=== PATIENT | male | born 1980 | race Caucasian/White ===

== ENCOUNTER 2017-10-25 14:57 | Inpatient (IN) | payer OTHER ==
[2017-10-25 18:33] VITALS: BMI 20.2
--- NOTE | 2017-10-25 21:20 | HP ---
COWS - Scale Resting Pulse: 1= RI 81-100 Sweatin= Chills/Flushing Restless Observation: 1= Difficult to Sit Still Pupil Size: 1= Pupils >than Normal Bone or Joint Aches: 1= Mild Discomfort Runny Nose/ Eye Tearin= Nasal Congestion GI Upset > 30mins: 3= Vomiting/Diarrhea (Vomiting started today r/t withdrawal) Tremor Observation: 2= Slight Tremor Visible Yawning Observation: 0= None Anxiety or Irritability: 2=Irritable/Anxious Goose Flesh Skin: 0=Smooth Skin COWS Score: 13 Admission [facility] Chief Complaint: Here for heroin withdrawal, cocaine, and benzo withdrawal. Allergies/Adverse Reactions: Allergies Allergy/AdvReac Type Severity Reaction Status Date / Time No Known Allergies Allergy Verified 10/25/17 18:48 History of Present Illness: First detox for opiate use disorder. Started using heroin from age 17 to 18 and stopped. Re-started heroin 4 months ago States started using heroin because of inability to get usual prescription pain medications. CHIEF WARDEN indicates oxycodone and tramadol prescriptions for approx 1 year. Received pain management for low back pain. Cocaine use occ since age 14. Denies alcohol. Has been using Xanax 2-3 x/week since age 15. On prescription THC for pain management. Last used in THC in September 2017. Pain and musculo-skeletal issues r/t 40 foot fall 2 years ago. Exam Limitations: No Limitations - Ebola screening Have you traveled outside of the country in the last 21 days: Yes Have you had contact with anyone from an Ebola affected area: No Have you been sick,other than usual withdrawal symptoms: No Do you have a fever: No - Review of Systems Constitutional: Chills, Unintentional Wgt. Loss (r/t poor appetite and vomiting r/t heroin use.) EENT: reports: Dental Problems (Broken teeth and multiple caries. Denies dental pain.) Respiratory: reports: Other (Hx asthma - last exacerbation over 1 year ago. No current medications.) Cardiac: reports: No Symptoms Reported GI: reports: Diarrhea (x 3 days), Vomiting (x 3 days) : reports: Other (Difficulty starting urine flow since accident. Urinates about 2-3 times/day. Denies pain or blood w/ urination.) Musculoskeletal: reports: Back Pain (Protruding coccyx. S/p 40 foot fall. LBP is a "10", sharp and increases with touch or pressure, walking. Pain medication helps.), Joint Pain (Pain in (R) knee is a "10" and very 'hard'. Has a pin in upper leg and knee. Pain increases with cold weather, raining, and walking. Uses crutches and wear a knee brace. Resting and pain medication helps.), Muscle Weakness (Generalized.) Integumentary: reports: No Symptoms Reported Endocrine: reports: No Symptoms Reported Hematology: reports: No Symptoms Reported Psychiatric: reports: Depressed (Depression x 7 months. Denies suicide or violent ideation.) Patient History - Patient Medical History Hx Asthma: Yes (NO MEDIACTION PRESCRIBED) Hx Chronic Obstructive Pulmonary Disease (COPD): No Hx Cancer: No Hx Cardiac Disorders: No Hx Congestive Heart Failure: No Hx Hypertension: No Hx Pacemaker: No HX Cerebrovascular Accident: No Hx Seizures: No Hx Dementia: No Hx Diabetes: No Hx Gastrointestinal Disorders: No Hx Liver Disease: Yes (Hep C) Hx Genitourinary Disorders: No Hx Sexually Transmitted Disorders: No Hx Renal Disease (ESRD): No Hx Thyroid Disease: No Hx Human Immunodeficiency Virus (HIV): No Hx Hepatitis C: Yes (No medication treatment) Hx Depression: Yes Hx Suicide Attempt: Yes (19 YEARS AGO IN [place], ATTEMPTED TO HANG HIMSELF WITH A ROPE) Hx Schizophrenia: No - Patient Surgical History Past Surgical History: Yes Hx Neurologic Surgery: No Hx Cataract Extraction: No Hx Cardiac Surgery: No Hx Lung Surgery: No Hx Breast Surgery: No Hx Breast Biopsy: No Hx Abdominal Surgery: No Hx Appendectomy: No Hx Cholecystectomy: No Hx Genitourinary Surgery: No Hx Section: No Hx Orthopedic Surgery: Yes (2 YEARS AGO SURGERY ON BACK, LEFT LEG LEFT HAND AND LEFT SIDE OF FACE) Anesthesia Reaction: No - PPD History Previous Implant?: Yes Documented Results: Negative w/o proof PPD to be Administered?: Yes - Reproductive History Patient is a Female of Child Bearing Age (11 -55 yrs old): No - Smoking Cessation Smoking history: Current every day smoker Have you smoked in the past 12 months: Yes Aproximately how many cigarettes per day: 10 Hx Chewing Tobacco Use: No Initiated information on smoking cessation: Yes 'Breaking Loose' booklet given: 10/25/17 - Substance & Tx. History Hx Alcohol Use: No Hx Substance Use: Yes Substance Use Type: Cocaine, Heroin, Prescribed (Was on prescribed opiates until June 2017. On medical THC until September 2017) - Substances Abused Heroin Route: Injection Frequency: Daily Amount used: 7-10 bags daily ($70-100) Age of first use: 17 Date of Last Use: 10/24/17 Cocaine Route: Injection Frequency: 1-3 times last 30 days Amount used: 1-2 bundles when used Age of first use: 17 Date of Last Use: 10/15/17 Alprazolam (Xanax) Route: Oral Frequency: 3-6 times per week Amount used: 2-3 sticks Age of first use: 15 Date of Last Use: 10/24/17 Family Disease History - Family Disease History Family Disease History: Diabetes: Grandparent (Metastatic cancer - MGM), CA: Grandparent, Respiratory: Brother (Asthma) Admission Physical Exam [facility] - Vital Signs Vital Signs: Vital Signs - 24 hr 10/25/17 18:31 Temperature 97.5 F L Pulse Rate 85 Respiratory 20 Rate Blood Pressure 114/72 - Physical General Appearance: Yes: Appropriately Dressed, Mild Distress HEENTM: Yes: EOMI, Hearing grossly Normal, MARIBEL (Pupils 4 mm) Respiratory: Yes: Lungs Clear, Normal Breath Sounds Neck: Yes: No masses,lesions,Nodules Breast: Yes: Breast Exam Deferred Cardiology: Yes: Regular Rhythm, Regular Rate, S1, S2 Abdominal: Yes: Non Tender, Flat, Soft Genitourinary: Yes: Within Normal Limits Back: Yes: Decreased Range of Motion (Unable to fully flrx back.), Vertebral Tenderness (Tenderness and protruding structure in lumbar/coccyx area.) Musculoskeletal: Yes: Back pain (Protruding coccyx with increased warmth and tenderness.) Extremities: Yes: Within Normal Limits, Tremors, Other (Swelling and tenderness (L) knee area.) Neurological: Yes: Fully Oriented, Alert, Other (BHG (R) greater than (L).) Integumentary: Yes: Track Benites (Track benites (L) antecubital area. Poor skin turgor.), Other (Superficial lesion area approx 2 mm circular w/ whitish skin at center at coccyx area.) - Diagnostic (1) Cocaine dependence with withdrawal Current Visit: Yes Status: Acute (2) Opiate withdrawal Current Visit: Yes Status: Acute (3) Skin lesion of back Current Visit: Yes Status: Acute (4) Impaired mobility Current Visit: Yes Status: Acute (5) Nicotine dependence unspecified, with withdrawal Current Visit: Yes Status: Acute Cleared for Admission [facility] - Detox or Rehab [facility] Level of Care: Medically Managed Detox Regimen/Protocol: Methadone/Valium [facility] Breath Alcohol Content Breath Alcohol Content: 0 Urine Drug Screen - Results Drug Screen Negative: No Urine Drug Screen Results: THC-Marijuana, TIERA-Cocaine, OPI-Opiates, BZO- Benzodiazepines, MTD-Methadone
[2017-10-25] MEDS ORDERED: MELATONIN 5 MG TABLETS PO PRN (22:00)
[2017-10-25] MEDS ORDERED: MAG HYDROX/AL HYDROX/SIMETH 30 ML UNIT-DOSE CUP PO PRN (22:01)
[2017-10-25] MEDS ORDERED: NICOTINE POLACRILEX 2 MG GUM BUC PRN (22:01)
[2017-10-25] MEDS ORDERED: MAGNESIUM HYDROX 2400MG/30ML ORAL SUSPENSION 30 ML CUP PO PRN (22:01)
[2017-10-25] MEDS ORDERED: hydrOXYzine PAMOATE 50 MG CAPSULE (FP) PO PRN (22:01)
[2017-10-25] MEDS ORDERED: P-EPHED 60MG/TRIPROLIDI 2.5MG TABLET PO PRN (22:01)
[2017-10-25] MEDS ORDERED: ACETAMINOPHEN 325 MG TABLET (FP) PO PRN (22:10)
[2017-10-25] MEDS ORDERED: diazePAM 5 MG TABLET PO PRN (22:12)
[2017-10-25] MEDS ORDERED: LOPERAMIDE HCL 2 MG CAPSULE PO PRN (22:12)
[2017-10-25] MEDS ORDERED: guaiFENesin/D-METHORPHAN HB 10 ML UNIT-DOSE CUPS PO PRN (22:12)
[2017-10-25] MEDS ORDERED: IBUPROFEN 400 MG TABLET (FP) PO PRN (22:12)
[2017-10-25] MEDS ORDERED: MAGNESIUM CITRATE 300 ML BOTTLE PO PRN (22:13)
[2017-10-25] MEDS ORDERED: MENTHOL/PHENOL 1 EACH UD MM PRN (22:13)
[2017-10-25] MEDS ORDERED: METHADONE HCL 10 MG TABLET (FOR DETOX USE ONLY) PO ONE ×2 (22:15→23:00)
[2017-10-25] MEDS ORDERED: diazePAM 5 MG TABLET PO ONE (22:15)
[2017-10-26] MEDS: diazePAM 5 MG TABLET PO SCH ×4 (06:18→22:09)
--- NOTE | 2017-10-26 09:22 | EKG ---
Test Reason : Blood Pressure : / mmHG Vent. Rate : 079 BPM Atrial Rate : 079 BPM P-R Int : 108 ms QRS Dur : 086 ms QT Int : 384 ms P-R-T Axes : 067 086 070 degrees QTc Int : 440 ms SINUS RHYTHM WITH MARKED SINUS ARRHYTHMIA WITH SHORT PA OTHERWISE NORMAL ECG NO PREVIOUS ECGS AVAILABLE Confirmed by SHANIQUA LEPE, BEN ([id number]) on 10/26/2017 9:21:56 AM Referred By: Confirmed By:BEN MCGOVERN MD
[2017-10-26] MEDS ORDERED: PRENATAL VITAMINS W/ FOLIC ACID TABLET (FP) PO SCH (10:00)
[2017-10-26] MEDS ORDERED: METHADONE HCL 10 MG TABLET (FOR DETOX USE ONLY) PO SCH (10:00)
[2017-10-26] MEDS ORDERED: NICOTINE 21 MG/24 HOURS TOPICAL PATCH TD SCH (10:00)
[2017-10-26 10:17] LABS: HEMATOCRIT 37.6 % (35.4-49); HEMOGLOBIN 13.3 GM/dL (11.7-16.9); MCH 34.4 pg (25.7-33.7); MCHC 35.3 g/dl (32.0-35.9); MEAN CELL VOLUME 97.7 fl (80-96); MEAN PLT VOLUME 8.8 fl (7.5-11.1); PLATELET COUNT 216 K/MM3 (134-434); RBC 3.85 M/mm3 (4.00-5.60); RDW 13.2 % (11.9-15.9); WHITE BLOOD COUNT 7.5 K/mm3 (4.0-10.0)
[2017-10-26 10:37] LABS: CHLORIDE 109 mmol/L (98-107); SODIUM 144 mmol/L (136-145)
[2017-10-26] MEDS: BACITRACIN 0.9 GM PACKET TP SCH ×2 (10:45→22:09)
[2017-10-26 11:00] LABS: ALBUMIN 2.8 g/dl (3.4-5.0); ALK PHOS 75 U/L (45-117); ANION GAP 7 (8-16); BILIRUBIN,TOTAL 0.9 mg/dL (0.2-1.0); BLOOD UREA NITROGEN 9 mg/dL (7-18); CALCIUM 8.5 mg/dL (8.5-10.1); CO2 28 mmol/L (21-32); CREATININE 0.7 mg/dL (0.7-1.3); GLUCOSE,RANDOM 102 mg/dL (74-106); SGOT/AST 25 U/L (15-37); SGPT/ALT 44 U/L (12-78)
--- NOTE | 2017-10-26 14:14 | PN ---
[facility] COWS - Scale Resting Pulse: 0= HI 80 or Below Sweatin= Chills/Flushing Restless Observation: 3= Extraneous Movement Pupil Size: 1= Pupils >than Normal Bone or Joint Aches: 2= Severe Diffuse Aches Runny Nose/ Eye Tearin= Runny Nose/Eyes GI Upset > 30mins: 2= Nausea/Diarrhea Tremor Observation of Outstretched Hands: 2= Slight Tremor Visible Yawning Observation: 1= 1-2x During Session Anxiety or Irritability: 2=Irritable/Anxious Goose Flesh Skin: 0=Smooth Skin COWS Score: 16 S Progress Note (SOAP) Subjective: ALERT,IRRITABLE,ANXIOUS,INTERRUPTED SLEEP,TREMOR,PAIN IN THE BODY AND BACK Objective: 10/26/17 14:11 Vital Signs Temperature 98.9 F 10/26/17 09:30 Pulse Rate 57 L 10/26/17 09:30 Respiratory Rate 18 10/26/17 09:30 Blood Pressure 97/58 10/26/17 09:30 O2 Sat by Pulse Oximetry (%) EKG NSR WITH SINUS ARRHYTHMIA PROLONG QT 384/440 NO CHEST PAIN,NO SOB,NO DIZZINESS Laboratory Last Values WBC 7.5 K/mm3 (4.0-10.0) 10/26/17 08:00 RBC 3.85 M/mm3 (4.00-5.60) L 10/26/17 08:00 Hgb 13.3 GM/dL (11.7-16.9) 10/26/17 08:00 Hct 37.6 % (35.4-49) 10/26/17 08:00 MCV 97.7 fl (80-96) H 10/26/17 08:00 MCH 34.4 pg (25.7-33.7) H 10/26/17 08:00 MCHC 35.3 g/dl (32.0-35.9) 10/26/17 08:00 RDW 13.2 % (11.9-15.9) 10/26/17 08:00 Plt Count 216 K/MM3 (134-434) 10/26/17 08:00 MPV 8.8 fl (7.5-11.1) 10/26/17 08:00 Sodium 144 mmol/L (136-145) 10/26/17 08:00 Potassium 4.0 mmol/L (3.5-5.1) 10/26/17 08:00 Chloride 109 mmol/L (98-107) H 10/26/17 08:00 Carbon Dioxide 28 mmol/L (21-32) 10/26/17 08:00 Anion Gap 7 (8-16) L 10/26/17 08:00 BUN 9 mg/dL (7-18) 10/26/17 08:00 Creatinine 0.7 mg/dL (0.7-1.3) 10/26/17 08:00 Creat Clearance w eGFR > 60 (>60) 10/26/17 08:00 Random Glucose 102 mg/dL (74-106) 10/26/17 08:00 Calcium 8.5 mg/dL (8.5-10.1) 10/26/17 08:00 Total Bilirubin 0.9 mg/dL (0.2-1.0) 10/26/17 08:00 AST 25 U/L (15-37) 10/26/17 08:00 ALT 44 U/L (12-78) 10/26/17 08:00 Alkaline Phosphatase 75 U/L (45-117) 10/26/17 08:00 Total Protein 6.0 g/dl (6.4-8.2) L 10/26/17 08:00 Albumin 2.8 g/dl (3.4-5.0) L 10/26/17 08:00 RPR Titer Nonreactive (NONREACTIVE) 10/26/17 08:00 HIV 1&2 Antibody Screen Negative 10/26/17 08:00 HIV P24 Antigen Negative 10/26/17 08:00 Assessment: 10/26/17 14:13 WITHDRAWAL SYMPTOM Plan: CONTINUE DETOX
--- NOTE | 2017-10-26 15:33 | CONSULT ---
[facility] Psychiatric Consult - Data Date of interview: 10/26/17 Admission source: [facility] Identifying data: First admission to [facility] for this 37 y/o male seeking detox treatment on for opioid,cannabis,cocaine and benzodiazepine dependence.Patient is single,a father of one,homeless,unemployed (disabled) and currently supported on SSI benefits. Substance Abuse History: Confirmed by patient in this interview.Details in current [facility] report : Smoking history: Current every day smoker. Have you smoked in the past 12 months: Yes. Aproximately how many cigarettes per day: 10. Hx Chewing Tobacco Use: No. Initiated information on smoking cessation: Yes. 'Breaking Loose' booklet given: 10/25/17. - Substance & Tx. History. Hx Alcohol Use: No. Hx Substance Use: Yes. Substance Use Type: Cocaine, Heroin, Prescribed (Was on prescribed opiates until June 2017. On medical THC until September 2017). - Substances Abused. Heroin. Route: Injection. Frequency: Daily. Amount used: 7-10 bags daily ($70-100). Age of first use: 17. Date of Last Use: 10/24/17. Cocaine. Route: Injection. Frequency: 1-3 times last 30 days. Amount used: 1-2 bundles when used. Age of first use: 17. Date of Last Use: 10/15/17. Alprazolam (Xanax). Route: Oral. Frequency: 3-6 times per week. Amount used: 2-3 sticks. Age of first use: 15. Date of Last Use: Medical History: Significant medical co-morbidities : bronchial asthma, hepatitis C,severe physical injuries from a job-related accident two years ago ( fall from a roof forty feet high),head trauma with coma,past surgery on lumbar spine + right leg (hardware in situ) and marked difficulty for ambulation ( wears left knee brace + uses two crutches). Psychiatric History: No reported history of psychiatric hospitalizations in spite of an antecedent of suicide attempt - at age 19 - via hanging.Patient denies prior exposure to psychotropic medications.No history of psychiatric OPD care. Physical/Sexual Abuse/Trauma History: Patient denies history of abuse.Currently facing heavy stressors : severe physical disabilities,financial constraints, homelessness,strained support system,addictions to substances and chronic pain syndrome. Additional Comment: Urine Drug Screen Results: THC-Marijuana, TIERA-Cocaine, OPI- Opiates, BZO-Benzodiazepines, MTD-Methadone.Noted. Mental Status Exam - Mental Status Exam Alert and Oriented to: Time, Place, Person Cognitive Function: Good Patient Appearance: Well Groomed (tall frame,knee brace (left),contorted gait, moving around with crutches) Mood: Sad, Nervous, Withdrawn, Anxious Affect: Mood Congruent, Constricted Patient Behavior: Fatigued, Appropriate, Cooperative Speech Pattern: Clear Voice Loudness: Normal Thought Process: Intact, Goal Oriented Thought Disorder: Not Present Hallucinations: Denies Suicidal Ideation: Denies Homicidal Ideation: Denies Insight/Judgement: Poor Sleep: Poorly, Difficulty falling asleep Appetite: Poor, Weight loss Gait/Station: Other (wears a knee brace and moves with crutches) Psychiatric Findings - Problem List ([place] 1, 2,3) (1) Opiate withdrawal Current Visit: Yes Status: Acute (2) Cocaine dependence with withdrawal Current Visit: Yes Status: Acute (3) Benzodiazepine dependence Current Visit: Yes Status: Acute (4) Cannabis dependence Current Visit: Yes Status: Acute (5) Nicotine dependence unspecified, with withdrawal Current Visit: Yes Status: Acute (6) Substance induced mood disorder Current Visit: Yes Status: Acute (7) Insomnia Current Visit: Yes Status: Acute - Initial Treatment Plan Initial Treatment Plan: Psychoeducation.Empathy.Sleep hygiene.Detoxification in progress.Insomnia is addressed with melatonin 5 mg po hs prn.Side effects/ benefits discussed with the patient.Mr Galo agrees with this careplan.Observation.Fall precautions.
[2017-10-26] MEDS ORDERED: THIAMINE HCL 100 MG TABLET (FP) PO SCH (22:00)
[2017-10-27 09:57] VITALS: BP 115/72; PULSE 94; TEMP 99.1
[2017-10-27] MEDS ORDERED: diazePAM 5 MG TABLET PO SCH (10:00)
[2017-10-27] MEDS ORDERED: METHADONE HCL 5 MG TABLET (FOR DETOX USE ONLY) PO SCH (10:00)
--- NOTE | 2017-10-27 12:31 | DS ---
[facility] Detox Discharge Summary Admission Date: 10/25/17 Discharge Date: 10/27/17 - History Present History: Cocaine Dependence, Opioid Dependence, Sedative Dependence Additional Comments: Neurology Hospitalist, counselor and staff spoke with patient and encouraged him to complete detox but he stated that he has court date 11/06/17 and has to meet with his telephone information clerk tomorrow. Neurology Hospitalist offered to adjust his detox protocol so that he can leave early tomorrow morning but patient refused to stay. Patient made aware that he is leaving AMA. Pertinent Past History: Hepatitis C Asthma - Physical Exam Results Vital Signs: Vital Signs Temperature 99.1 F 10/27/17 09:47 Pulse Rate 94 H 10/27/17 09:47 Respiratory Rate 16 10/27/17 09:47 Blood Pressure 115/72 10/27/17 09:47 O2 Sat by Pulse Oximetry (%) Pertinent Admission Physical Exam Findings: Withdrawal symptoms Laboratory Tests 10/26/17 10/26/17 10/26/17 08:00 08:00 08:00 WBC 7.5 RBC 3.85 L Hgb 13.3 Hct 37.6 MCV 97.7 H MCH 34.4 H MCHC 35.3 RDW 13.2 Plt Count 216 MPV 8.8 Sodium 144 Potassium 4.0 Chloride 109 H Carbon Dioxide 28 Anion Gap 7 L BUN 9 Creatinine 0.7 Creat Clearance w eGFR > 60 Random Glucose 102 Calcium 8.5 Total Bilirubin 0.9 AST 25 ALT 44 Alkaline Phosphatase 75 Total Protein 6.0 L Albumin 2.8 L RPR Titer HIV 1&2 Antibody Screen Negative HIV P24 Antigen Negative 10/26/17 08:00 WBC RBC Hgb Hct MCV MCH MCHC RDW Plt Count MPV Sodium Potassium Chloride Carbon Dioxide Anion Gap BUN Creatinine Creat Clearance w eGFR Random Glucose Calcium Total Bilirubin AST ALT Alkaline Phosphatase Total Protein Albumin RPR Titer Nonreactive HIV 1&2 Antibody Screen HIV P24 Antigen Labs reviewed - Medication Discharge Medications: Ambulatory Orders Oxycodone HCl/Acetaminophen [Percocet 5-325 mg Tablet] 2 tab PO Q4H PRN - Diagnosis (1) Sedative, hypnotic or anxiolytic dependence with withdrawal, uncomplicated Status: Acute (2) Opioid dependence, uncomplicated Status: Acute (3) Nicotine dependence, uncomplicated Status: Chronic (4) Hepatitis C Status: Chronic (5) Asthma Status: Chronic Qualifiers: Asthma severity: mild Asthma persistence: intermittent (6) Depression Status: Chronic (7) Cocaine dependence with withdrawal Status: Chronic - AMA Did Patient Leave Against Medical Advice: Yes (follow up with PCP within 3 days)
[2017-10-29] MEDS ORDERED: METHADONE HCL 10 MG TABLET (FOR DETOX USE ONLY) PO SCH (10:00)
[2017-10-29] MEDS ORDERED: diazePAM 5 MG TABLET PO SCH (10:00)
[2017-10-30] MEDS ORDERED: METHADONE HCL 5 MG TABLET (FOR DETOX USE ONLY) PO SCH (06:00)
== END 2017-10-27 10:17 | disposition left against medical advice (07) | DRG 770 ==
LOC: YASAS 14:57 → Y6N 19:35
PROVIDERS: ADMIT Internal Medicine; ATTEND Surgery
PROC: HZ2ZZZZ Detoxification Services for Substance Abuse Treatment (ICD-10-PCS; principal; 2017-10-25)
DX: F11.23 Opioid dependence with withdrawal (principal); F13.230 Sedative, hypnotic or anxiolytic dependence with withdrawal, uncomplicated; F10.230 Alcohol dependence with withdrawal, uncomplicated; F14.23 Cocaine dependence with withdrawal; F17.213 Nicotine dependence, cigarettes, with withdrawal; F32.9 Major depressive disorder, single episode, unspecified; F19.24 Other psychoactive substance dependence with psychoactive substance-induced mood disorder; J45.20 Mild intermittent asthma, uncomplicated; B18.2 Chronic viral hepatitis C; G47.00 Insomnia, unspecified; E86.0 Dehydration; L98.8 Other specified disorders of the skin and subcutaneous tissue; Z74.09 Other reduced mobility; Z91.5 Personal history of self-harm; Z59.0 Homelessness
CPT/HCPCS: 36415; 80053; 85027; 86593; 87389; 93005; 93010